=== PATIENT | male | born 1990 | race Caucasian/White ===

== ENCOUNTER 2016-10-24 14:42 | Inpatient (IN) | payer OTHER, MEDICAID ==
[~2016-10-24] VITALS: Ht 175.3 cm; Wt 45.7 kg
[2016-10-24] MEDS ORDERED: SODIUM CHLORIDE FLUSH 10ML SYR IVF ONE (15:30)
[2016-10-24] MEDS ORDERED: MORPHINE SULFATE 4 MG/ML, 1ML IVPush PRN (15:30)
[2016-10-24] MEDS ORDERED: ONDANSETRON 2MG/ML, 2ML IVPush ONE (15:30)
[2016-10-24] MEDS ORDERED: SODIUM CHLORIDE 0.9% 1,000ML IVBOLUS ONE (15:30)
[2016-10-24] MEDS ORDERED: ONDANSETRON ODT 4 MG ONE (16:26)
[2016-10-24 17:50] LABS: ASPARTATE AMINO TRANSFERASE 25 U/L (15-37); BLOOD UREA NITROGEN 85 mg/dL (7-18)
[2016-10-24] MEDS ORDERED: POTASSIUM CHLORIDE 20 MEQ PACKET PO ONE (18:30)
[2016-10-24] MEDS ORDERED: ONDANSETRON 2MG/ML, 2ML ONE (19:23)
[2016-10-24] MEDS ORDERED: BISACODYL 10 MG SUPP PR PRN (19:30)
[2016-10-24] MEDS ORDERED: PROMETHAZINE 25 MG/ML, 1ML IM PRN (19:30)
[2016-10-24] MEDS: PLEASE ENTER ALLERGIES MC SCH ×4 (19:44→23:57)
[2016-10-24 20:31] LABS: HIV 1&2 ANTIBODY SCREEN Nonreactive (Nonreactive); HIV-1 p24 ANTIGEN Nonreactive (Nonreactive)
[2016-10-24 21:07] LABS: HEPATITIS C VIRUS ANTIBODY Nonreactive (Nonreactive)
[2016-10-24] MEDS: NS + 40MEQ KCL 1,000 ML IV SCH (21:32)
[2016-10-24] MEDS: HEPARIN 5,000 UNITS/ML, 1ML SQ SCH (21:36)
[2016-10-24] MEDS: morphine SULFATE 10 MG/ML, 1ML IVPush PRN ×2 (21:41→22:23)
[2016-10-24 21:48] VITALS: BP 131/82
[2016-10-25] MEDS: morphine SULFATE 10 MG/ML, 1ML IVPush PRN ×7 (01:33→21:13)
[2016-10-25 01:45] VITALS: BP 129/92
[2016-10-25] MEDS: ONDANSETRON 2MG/ML, 2ML IVPush PRN (04:45)
[2016-10-25] MEDS: HEPARIN 5,000 UNITS/ML, 1ML SQ SCH ×3 (04:51→21:13)
[2016-10-25] MEDS: NS + 40MEQ KCL 1,000 ML IV SCH ×3 (06:27→22:09)
[2016-10-25 06:50] LABS: BLOOD UREA NITROGEN 90 mg/dL (7-18)
[2016-10-25 06:54] LABS: ASPARTATE AMINO TRANSFERASE 24 U/L (15-37)
[2016-10-25 07:02] VITALS: BP 148/95
[2016-10-25] MEDS: PLEASE ENTER ALLERGIES MC SCH ×2 (08:00)
[2016-10-25] MEDS ORDERED: PHARMACY MAY ADJ FOR RENAL FX MC PRN (10:00)
[2016-10-25] MEDS: PANTOPRAZOLE 40 MG IV IVPush SCH ×2 (11:31→21:13)
[2016-10-25 12:44] VITALS: BP 147/101
[2016-10-25 19:21] VITALS: BP 148/91
[2016-10-26] MEDS: morphine SULFATE 10 MG/ML, 1ML IVPush PRN ×7 (00:25→22:49)
[2016-10-26 01:37] VITALS: BP 175/78
[2016-10-26 04:35] LABS: BLOOD UREA NITROGEN 79 mg/dL (7-18)
[2016-10-26] MEDS: HEPARIN 5,000 UNITS/ML, 1ML SQ SCH (04:43)
[2016-10-26] MEDS: NS + 40MEQ KCL 1,000 ML IV SCH ×3 (04:43→19:34)
[2016-10-26 05:11] LABS: DIFF TOTAL CELLS COUNTED 100 CELL DIFF
[2016-10-26 05:12] LABS: VERIFY COUNTS? YES
[2016-10-26] MEDS: ONDANSETRON 2MG/ML, 2ML IVPush PRN (05:21)
[2016-10-26 06:58] VITALS: BP 137/92
[2016-10-26] MEDS: PANTOPRAZOLE 40 MG IV IVPush SCH ×2 (10:32→19:37)
[2016-10-26 12:52] VITALS: BP 165/108
[2016-10-26] MEDS: PIPERACILLIN/TAZO/PMX 4.5GM 100 ML IV SCH ×2 (14:09→19:36)
[2016-10-26 20:18] VITALS: BP 142/87
[2016-10-27] MEDS: PIPERACILLIN/TAZO/PMX 4.5GM 100 ML IV SCH ×4 (00:45→18:30)
[2016-10-27 02:16] VITALS: BP 154/88
[2016-10-27] MEDS: NS + 40MEQ KCL 1,000 ML IV SCH ×2 (02:22→10:25)
[2016-10-27] MEDS: morphine SULFATE 10 MG/ML, 1ML IVPush PRN ×6 (02:22→20:45)
[2016-10-27 04:26] LABS: BLOOD UREA NITROGEN 66 mg/dL (7-18)
[2016-10-27 04:30] LABS: ASPARTATE AMINO TRANSFERASE 14 U/L (15-37); DIFF TOTAL CELLS COUNTED 100 CELL DIFF
[2016-10-27 04:32] LABS: VERIFY COUNTS? YES
[2016-10-27 06:54] VITALS: BP 151/88
[2016-10-27] MEDS: PANTOPRAZOLE 40 MG IV IVPush SCH ×2 (10:25→22:07)
[2016-10-27 13:10] VITALS: BP 126/70
[2016-10-27] MEDS ORDERED: PROPOFOL 10 MG/ML, 20ML ONE (14:18)
[2016-10-27] MEDS ORDERED: SUCCINYLCHOLINE 20 MG/ML, 10ML ONE (14:18)
[2016-10-27] MEDS ORDERED: FENTANYL PF 100 MCG/2ML IV PRN (15:00)
[2016-10-27] MEDS ORDERED: MIDAZOLAM 1 MG/ML, 2ML IV PRN (15:00)
[2016-10-27] MEDS ORDERED: ONDANSETRON 2MG/ML, 2ML IVPush PRN (15:00)
[2016-10-27] MEDS ORDERED: HYDROmorphone 1 MG/ML, 1ML IV PRN (15:00)
[2016-10-27] MEDS: D5%-0.45% NACL 1,000 ML IV SCH (16:00)
[2016-10-27 20:24] VITALS: BP 128/83
[2016-10-28] MEDS: morphine SULFATE 10 MG/ML, 1ML IVPush PRN ×6 (00:22→19:56)
[2016-10-28] MEDS: PIPERACILLIN/TAZO/PMX 4.5GM 100 ML IV SCH ×2 (00:56→06:06)
[2016-10-28 02:25] VITALS: BP 125/69
[2016-10-28] MEDS: D5%-0.45% NACL 1,000 ML IV SCH ×3 (03:33→16:20)
[2016-10-28 03:45] LABS: ASPARTATE AMINO TRANSFERASE 12 U/L (15-37); BLOOD UREA NITROGEN 56 mg/dL (7-18)
[2016-10-28 08:25] VITALS: BP 129/72
[2016-10-28] MEDS: PANTOPRAZOLE 40 MG IV IVPush SCH ×2 (09:44→22:14)
[2016-10-28] MEDS ORDERED: PHARMACY MAY ADJ FOR RENAL FX MC PRN (12:30)
[2016-10-28 12:59] VITALS: BP 132/77
[2016-10-28] MEDS ORDERED: PIPERACILLIN/TAZO 3.375 GM in SODIUM CHLORIDE 0.9% 50 ML IV SCH (13:00)
[2016-10-28] MEDS: PIPERACILLIN/TAZO 3.375 GM in SODIUM CHLORIDE 0.9% 50 ML IV SCH ×2 (16:38→22:14)
[2016-10-28 16:45] LABS: BLOOD UREA NITROGEN 44 mg/dL (7-18)
[2016-10-28 18:54] VITALS: BP 129/78
[2016-10-29] MEDS: morphine SULFATE 10 MG/ML, 1ML IVPush PRN ×6 (00:57→21:40)
[2016-10-29] MEDS: D5%-0.45% NACL 1,000 ML IV SCH ×4 (00:58→21:41)
[2016-10-29 02:00] VITALS: BP 132/78
[2016-10-29] MEDS: PIPERACILLIN/TAZO 3.375 GM in SODIUM CHLORIDE 0.9% 50 ML IV SCH ×3 (03:54→21:41)
[2016-10-29 04:27] LABS: BLOOD UREA NITROGEN 38 mg/dL (7-18)
[2016-10-29 08:00] VITALS: BP 136/79
[2016-10-29] MEDS ORDERED: GADOBUTROL 7.5 MMOL/7.5 ML VIAL ONE (14:00)
[2016-10-29 14:13] VITALS: BP 152/89
[2016-10-29] MEDS: PANTOPRAZOLE 40 MG IV IVPush SCH (14:18)
[2016-10-29] MEDS ORDERED: TPN PER PHARMACY MC PRN (16:30)
[2016-10-29] MEDS ORDERED: [UNRECOGNIZED DRUG - OTHER] IV SCH (17:00)
[2016-10-29] MEDS ORDERED: FAT EMULSIONS IV SCH (17:00)
[2016-10-29] MEDS ORDERED: AMINO ACID 10% IV SCH (17:00)
[2016-10-29] MEDS ORDERED: DEXTROSE 70% IV SCH (17:00)
[2016-10-29] MEDS ORDERED: DEXTROSE 10% 500 ML IV PRN (17:00)
[2016-10-29] MEDS ORDERED: DEXTROSE 50%, 50ML SYRINGE IVPush PRN (17:00)
[2016-10-29] MEDS: FILTER 1.2 MICRON IV SCH (18:09)
[2016-10-29 19:00] VITALS: BP 152/86
[2016-10-30 00:27] VITALS: BP 131/77
[2016-10-30] MEDS: morphine SULFATE 10 MG/ML, 1ML IVPush PRN ×5 (00:46→20:14)
[2016-10-30] MEDS: PANTOPRAZOLE 40 MG IV IVPush SCH ×2 (03:36→14:33)
[2016-10-30] MEDS: PIPERACILLIN/TAZO 3.375 GM in SODIUM CHLORIDE 0.9% 50 ML IV SCH ×2 (03:36→08:33)
[2016-10-30] MEDS: INSULIN REGULAR LOW DOSE Q6H X 48HRS SQ-INSULIN SCH ×4 (03:37→20:30)
[2016-10-30 04:14] LABS: ASPARTATE AMINO TRANSFERASE 12 U/L (15-37); BLOOD UREA NITROGEN 30 mg/dL (7-18)
[2016-10-30 07:10] VITALS: BP 137/84
[2016-10-30] MEDS: D5%-0.45% NACL 1,000 ML IV SCH (08:00)
[2016-10-30 12:37] VITALS: BP 135/91
[2016-10-30] MEDS ORDERED: PIPERACILLIN/TAZO/PMX 4.5GM 100 ML IV SCH (13:00)
[2016-10-30] MEDS: PIPERACILLIN/TAZO/PMX 4.5GM 100 ML IV SCH ×2 (13:20→20:12)
[2016-10-30] MEDS ORDERED: FAT EMULSIONS IV SCH ×2 (17:00)
[2016-10-30] MEDS ORDERED: AMINO ACID 10% IV SCH ×2 (17:00)
[2016-10-30] MEDS: FILTER 1.2 MICRON IV SCH (17:00)
[2016-10-30] MEDS ORDERED: [UNRECOGNIZED DRUG - OTHER] IV SCH (17:00)
[2016-10-30] MEDS ORDERED: [UNRECOGNIZED DRUG - OTHER] IV SCH (17:00)
[2016-10-30] MEDS ORDERED: DEXTROSE 70% IV SCH ×2 (17:00)
[2016-10-30] MEDS ORDERED: D5%-0.45% NACL 1,000 ML IV SCH (17:00)
[2016-10-30] MEDS ORDERED: SODIUM CHLORIDE 0.9% 1,000 ML IV SCH ×2 (20:00)
[2016-10-30] MEDS: SODIUM CHLORIDE 0.9% 1,000 ML IV SCH (20:13)
[2016-10-30 20:52] VITALS: BP 156/80
[2016-10-31] MEDS: INSULIN REGULAR LOW DOSE Q6H X 48HRS SQ-INSULIN SCH ×4 (01:46→20:24)
[2016-10-31] MEDS: PANTOPRAZOLE 40 MG IV IVPush SCH ×2 (01:47→14:25)
[2016-10-31] MEDS: morphine SULFATE 10 MG/ML, 1ML IVPush PRN ×5 (01:47→20:39)
[2016-10-31] MEDS: PIPERACILLIN/TAZO/PMX 4.5GM 100 ML IV SCH ×4 (01:47→20:39)
[2016-10-31 02:50] VITALS: BP 134/81
[2016-10-31 06:47] LABS: ASPARTATE AMINO TRANSFERASE 18 U/L (15-37); BLOOD UREA NITROGEN 23 mg/dL (7-18)
[2016-10-31 07:45] VITALS: BP 145/95
[2016-10-31] MEDS: SODIUM CHLORIDE 0.9% 1,000 ML IV SCH (10:48)
[2016-10-31 12:35] VITALS: BP 152/97
[2016-10-31] MEDS ORDERED: AMINO ACID 10% IV SCH ×2 (17:00)
[2016-10-31] MEDS ORDERED: [UNRECOGNIZED DRUG - OTHER] IV SCH (17:00)
[2016-10-31] MEDS ORDERED: DEXTROSE 70% IV SCH ×2 (17:00)
[2016-10-31] MEDS ORDERED: [UNRECOGNIZED DRUG - OTHER] IV SCH (17:00)
[2016-10-31] MEDS ORDERED: FAT EMULSIONS IV SCH ×2 (17:00)
[2016-10-31] MEDS: FILTER 1.2 MICRON IV SCH (17:39)
[2016-10-31 19:02] VITALS: BP 165/89
[2016-11-01] MEDS: SODIUM CHLORIDE 0.9% 1,000 ML IV SCH ×2 (00:25→15:39)
[2016-11-01 00:37] VITALS: BP 147/79
[2016-11-01] MEDS: morphine SULFATE 10 MG/ML, 1ML IVPush PRN ×8 (00:41→23:35)
[2016-11-01] MEDS: PIPERACILLIN/TAZO/PMX 4.5GM 100 ML IV SCH ×4 (02:56→20:37)
[2016-11-01] MEDS: PANTOPRAZOLE 40 MG IV IVPush SCH ×2 (02:56→14:11)
[2016-11-01 03:57] LABS: ASPARTATE AMINO TRANSFERASE 25 U/L (15-37); BLOOD UREA NITROGEN 23 mg/dL (7-18)
[2016-11-01] MEDS: INSULIN REGULAR LOW DOSE QDAY SQ-INSULIN SCH (06:00)
[2016-11-01 07:07] VITALS: BP 151/87
[2016-11-01 13:17] VITALS: BP 136/76
[2016-11-01] MEDS ORDERED: FAT EMULSIONS IV SCH (17:00)
[2016-11-01] MEDS ORDERED: DEXTROSE 70% IV SCH (17:00)
[2016-11-01] MEDS ORDERED: [UNRECOGNIZED DRUG - OTHER] IV SCH (17:00)
[2016-11-01] MEDS ORDERED: AMINO ACID 10% IV SCH (17:00)
[2016-11-01] MEDS: FILTER 1.2 MICRON IV SCH (17:17)
[2016-11-01 19:25] VITALS: BP 145/74
[2016-11-02 01:49] VITALS: BP 144/80
[2016-11-02] MEDS: morphine SULFATE 10 MG/ML, 1ML IVPush PRN ×8 (03:04→23:57)
[2016-11-02] MEDS: PANTOPRAZOLE 40 MG IV IVPush SCH ×2 (03:13→15:28)
[2016-11-02] MEDS: PIPERACILLIN/TAZO/PMX 4.5GM 100 ML IV SCH ×4 (03:13→20:25)
[2016-11-02] MEDS: INSULIN REGULAR LOW DOSE QDAY SQ-INSULIN SCH (05:42)
[2016-11-02 06:46] LABS: BLOOD UREA NITROGEN 22 mg/dL (7-18)
[2016-11-02 06:51] LABS: ASPARTATE AMINO TRANSFERASE 32 U/L (15-37)
[2016-11-02 08:52] VITALS: BP 121/75
[2016-11-02] MEDS: SODIUM CHLORIDE 0.9% 1,000 ML IV SCH ×2 (09:55→20:25)
[2016-11-02 15:34] VITALS: BP 142/81
[2016-11-02] MEDS ORDERED: FAT EMULSIONS IV SCH ×2 (17:00)
[2016-11-02] MEDS ORDERED: [UNRECOGNIZED DRUG - OTHER] IV SCH (17:00)
[2016-11-02] MEDS ORDERED: DEXTROSE 70% IV SCH ×2 (17:00)
[2016-11-02] MEDS ORDERED: FILTER 1.2 MICRON IV SCH (17:00)
[2016-11-02] MEDS ORDERED: AMINO ACID 10% IV SCH ×2 (17:00)
[2016-11-02] MEDS ORDERED: [UNRECOGNIZED DRUG - OTHER] IV SCH (17:00)
[2016-11-02 20:12] VITALS: BP 119/67
[2016-11-03 02:00] VITALS: BP 111/67
[2016-11-03] MEDS: morphine SULFATE 10 MG/ML, 1ML IVPush PRN ×7 (03:14→22:26)
[2016-11-03] MEDS: PANTOPRAZOLE 40 MG IV IVPush SCH ×2 (03:14→15:43)
[2016-11-03] MEDS: PIPERACILLIN/TAZO/PMX 4.5GM 100 ML IV SCH ×4 (03:14→20:48)
[2016-11-03] MEDS: INSULIN REGULAR LOW DOSE QDAY SQ-INSULIN SCH (06:00)
[2016-11-03 06:12] LABS: ASPARTATE AMINO TRANSFERASE 25 U/L (15-37); BLOOD UREA NITROGEN 24 mg/dL (7-18)
[2016-11-03 07:47] VITALS: BP 116/66
[2016-11-03] MEDS: SODIUM CHLORIDE 0.9% 1,000 ML IV SCH (10:30)
[2016-11-03 13:01] VITALS: BP 115/74
[2016-11-03] MEDS: BENZOCAINE AEROSOL SPRAY 20%, 60ML TP PRN ×3 (15:44→22:26)
[2016-11-03] MEDS ORDERED: DEXTROSE 70% IV SCH (17:00)
[2016-11-03] MEDS ORDERED: FILTER 1.2 MICRON IV SCH (17:00)
[2016-11-03] MEDS ORDERED: AMINO ACID 10% IV SCH (17:00)
[2016-11-03] MEDS ORDERED: [UNRECOGNIZED DRUG - OTHER] IV SCH (17:00)
[2016-11-03] MEDS ORDERED: FAT EMULSIONS IV SCH (17:00)
[2016-11-03 18:48] VITALS: BP 128/74
[2016-11-04 01:08] VITALS: BP 122/74
[2016-11-04] MEDS: morphine SULFATE 10 MG/ML, 1ML IVPush PRN ×4 (01:31→12:32)
[2016-11-04] MEDS: SODIUM CHLORIDE 0.9% 1,000 ML IV SCH (01:34)
[2016-11-04] MEDS: PANTOPRAZOLE 40 MG IV IVPush SCH ×2 (02:36→14:27)
[2016-11-04] MEDS: PIPERACILLIN/TAZO/PMX 4.5GM 100 ML IV SCH ×4 (02:36→21:09)
[2016-11-04 04:04] LABS: POTASSIUM,URINE RANDOM 50 mmol/L
[2016-11-04] MEDS: BENZOCAINE AEROSOL SPRAY 20%, 60ML TP PRN ×2 (04:42→15:58)
[2016-11-04] MEDS: INSULIN REGULAR LOW DOSE QDAY SQ-INSULIN SCH (05:00)
[2016-11-04 05:42] LABS: ASPARTATE AMINO TRANSFERASE 28 U/L (15-37); BLOOD UREA NITROGEN 26 mg/dL (7-18)
[2016-11-04 06:54] VITALS: BP 122/72
[2016-11-04] MEDS ORDERED: LACTATED RINGERS 1,000 ML IV SCH (12:00)
[2016-11-04] MEDS ORDERED: TPN PER PHARMACY MC PRN (13:00)
[2016-11-04] MEDS ORDERED: morphine SULFATE 10 MG/ML, 1ML IVPush PRN (13:30)
[2016-11-04 14:30] VITALS: BP 114/71
[2016-11-04] MEDS ORDERED: SODIUM CHLORIDE 0.9% 1,000 ML IV SCH (14:30)
[2016-11-04] MEDS: MORPHINE SULFATE 4 MG/ML, 1ML IVPush PRN ×3 (15:55→23:14)
[2016-11-04] MEDS ORDERED: [UNRECOGNIZED DRUG - OTHER] IV SCH ×3 (17:00)
[2016-11-04] MEDS ORDERED: FAT EMULSIONS IV SCH ×3 (17:00)
[2016-11-04] MEDS ORDERED: DEXTROSE 70% IV SCH ×3 (17:00)
[2016-11-04] MEDS ORDERED: AMINO ACID 10% IV SCH ×3 (17:00)
[2016-11-04] MEDS: FILTER 1.2 MICRON IV SCH (17:33)
[2016-11-04 19:23] VITALS: BP 118/69
[2016-11-05] MEDS: LACTATED RINGERS 1,000 ML IV SCH (02:19)
[2016-11-05] MEDS: MORPHINE SULFATE 4 MG/ML, 1ML IVPush PRN ×5 (02:19→21:33)
[2016-11-05] MEDS: PANTOPRAZOLE 40 MG IV IVPush SCH ×2 (02:19→14:43)
[2016-11-05 02:36] VITALS: BP 116/68
[2016-11-05] MEDS: PIPERACILLIN/TAZO/PMX 4.5GM 100 ML IV SCH ×4 (03:24→20:40)
[2016-11-05 04:56] LABS: BLOOD UREA NITROGEN 26 mg/dL (7-18)
[2016-11-05] MEDS: INSULIN REGULAR LOW DOSE QDAY SQ-INSULIN SCH (05:37)
[2016-11-05] MEDS ORDERED: MIDAZOLAM 1 MG/ML, 2ML ONE (07:27)
[2016-11-05] MEDS ORDERED: DEXAMETHASONE 4 MG/ML, 1ML ONE (07:32)
[2016-11-05] MEDS ORDERED: ONDANSETRON 2MG/ML, 2ML ONE ×2 (07:32→09:02)
[2016-11-05] MEDS ORDERED: PROPOFOL 10 MG/ML, 20ML ONE (07:32)
[2016-11-05] MEDS ORDERED: PROMETHAZINE 25 MG/ML, 1ML IV PRN (09:00)
[2016-11-05] MEDS ORDERED: ACETAMINOPHEN 325 MG TABLET PO PRN (09:00)
[2016-11-05] MEDS ORDERED: MIDAZOLAM 1 MG/ML, 2ML IV PRN (09:00)
[2016-11-05] MEDS ORDERED: ALBUTEROL SULFATE 2.5 MG/3 ML NPPB PRN (09:00)
[2016-11-05] MEDS ORDERED: METOPROLOL 1 MG/ML, 5ML IV PRN (09:00)
[2016-11-05] MEDS ORDERED: FENTANYL PF 100 MCG/2ML IV PRN (09:00)
[2016-11-05] MEDS ORDERED: OXYcodone 5 MG/5 ML ORAL.SOL UDC PO PRN (09:00)
[2016-11-05] MEDS ORDERED: LABETALOL 5MG/ML, 20ML IV PRN (09:00)
[2016-11-05] MEDS: HYDROmorphone 1 MG/ML, 1ML IV PRN ×2 (09:00→09:20)
[2016-11-05] MEDS ORDERED: ONDANSETRON 2MG/ML, 2ML IVPush PRN (09:00)
[2016-11-05] MEDS ORDERED: EPHEDRINE 50 MG/ML, 1ML IVPush PRN (09:00)
[2016-11-05] MEDS ORDERED: hydrALAzine 20 MG/ML, 1ML IV PRN (09:00)
[2016-11-05] MEDS ORDERED: HYDROmorphone 1 MG/ML, 1ML ONE (09:01)
[2016-11-05 11:12] VITALS: BP 124/77
[2016-11-05 13:45] VITALS: BP 134/74
[2016-11-05] MEDS ORDERED: FAT EMULSIONS IV SCH (17:00)
[2016-11-05] MEDS ORDERED: DEXTROSE 70% IV SCH (17:00)
[2016-11-05] MEDS ORDERED: AMINO ACID 10% IV SCH (17:00)
[2016-11-05] MEDS ORDERED: [UNRECOGNIZED DRUG - OTHER] IV SCH (17:00)
[2016-11-05] MEDS: FILTER 1.2 MICRON IV SCH (17:14)
[2016-11-05] MEDS: METOCLOPRAMIDE 5 MG/ML, 2ML IVPush SCH (18:00)
[2016-11-05 19:43] VITALS: BP 132/78
[2016-11-06] MEDS: MORPHINE SULFATE 4 MG/ML, 1ML IVPush PRN ×7 (00:37→21:50)
[2016-11-06] MEDS: BENZOCAINE AEROSOL SPRAY 20%, 60ML TP PRN ×6 (00:38→21:10)
[2016-11-06] MEDS: LACTATED RINGERS 1,000 ML IV SCH ×2 (00:38→18:00)
[2016-11-06 02:50] VITALS: BP 122/74
[2016-11-06] MEDS: PANTOPRAZOLE 40 MG IV IVPush SCH ×2 (02:54→14:25)
[2016-11-06] MEDS: METOCLOPRAMIDE 5 MG/ML, 2ML IVPush SCH ×4 (02:54→20:00)
[2016-11-06] MEDS: PIPERACILLIN/TAZO/PMX 4.5GM 100 ML IV SCH ×3 (03:00→21:00)
[2016-11-06] MEDS: INSULIN REGULAR LOW DOSE QDAY SQ-INSULIN SCH (06:00)
[2016-11-06 06:31] LABS: ASPARTATE AMINO TRANSFERASE 32 U/L (15-37); BLOOD UREA NITROGEN 25 mg/dL (7-18)
[2016-11-06] MEDS: FAT EMULSIONS IV SCH (17:30)
[2016-11-06] MEDS: FILTER 1.2 MICRON IV SCH (17:30)
[2016-11-06] MEDS: [UNRECOGNIZED DRUG - OTHER] IV SCH (17:30)
[2016-11-06] MEDS: AMINO ACID 10% IV SCH (17:30)
[2016-11-06] MEDS: DEXTROSE 70% IV SCH (17:30)
[2016-11-07] MEDS: BENZOCAINE AEROSOL SPRAY 20%, 60ML TP PRN ×5 (01:00→15:31)
[2016-11-07] MEDS: MORPHINE SULFATE 4 MG/ML, 1ML IVPush PRN ×6 (01:00→22:14)
[2016-11-07] MEDS: PANTOPRAZOLE 40 MG IV IVPush SCH ×2 (02:00→14:38)
[2016-11-07] MEDS: METOCLOPRAMIDE 5 MG/ML, 2ML IVPush SCH ×4 (03:00→22:15)
[2016-11-07] MEDS: LACTATED RINGERS 1,000 ML IV SCH ×2 (04:00→22:15)
[2016-11-07] MEDS: INSULIN REGULAR LOW DOSE QDAY SQ-INSULIN SCH (06:00)
[2016-11-07 08:20] VITALS: BP 130/75
[2016-11-07] MEDS: PIPERACILLIN/TAZO/PMX 4.5GM 100 ML IV SCH ×4 (09:00→22:25)
[2016-11-07 14:55] VITALS: BP 144/81
[2016-11-07] MEDS: DEXTROSE 70% IV SCH (18:51)
[2016-11-07] MEDS: AMINO ACID 10% IV SCH (18:51)
[2016-11-07] MEDS: FAT EMULSIONS IV SCH (18:51)
[2016-11-07] MEDS: [UNRECOGNIZED DRUG - OTHER] IV SCH (18:51)
[2016-11-07] MEDS: FILTER 1.2 MICRON IV SCH (18:52)
[2016-11-07 20:31] VITALS: BP 121/81
[2016-11-08] MEDS: MORPHINE SULFATE 4 MG/ML, 1ML IVPush PRN ×6 (02:35→22:06)
[2016-11-08] MEDS: PANTOPRAZOLE 40 MG IV IVPush SCH ×2 (02:35→14:28)
[2016-11-08] MEDS: PIPERACILLIN/TAZO/PMX 4.5GM 100 ML IV SCH ×4 (02:35→21:01)
[2016-11-08] MEDS: METOCLOPRAMIDE 5 MG/ML, 2ML IVPush SCH ×4 (02:35→21:02)
[2016-11-08 02:45] VITALS: BP 108/12
[2016-11-08 03:47] LABS: BLOOD UREA NITROGEN 25 mg/dL (7-18)
[2016-11-08] MEDS: INSULIN REGULAR LOW DOSE QDAY SQ-INSULIN SCH (05:07)
[2016-11-08 09:19] VITALS: BP 122/74
[2016-11-08] MEDS: BENZOCAINE AEROSOL SPRAY 20%, 60ML TP PRN ×2 (09:54→14:29)
[2016-11-08] MEDS ORDERED: OMNIPAQUE 350 MG/ML, 150 ML BOTTLE ONE (11:53)
[2016-11-08] MEDS: LACTATED RINGERS 1,000 ML IV SCH (11:55)
[2016-11-08 13:48] VITALS: BP 123/76
[2016-11-08] MEDS ORDERED: FAT EMULSIONS IV SCH (17:00)
[2016-11-08] MEDS ORDERED: DEXTROSE 70% IV SCH (17:00)
[2016-11-08] MEDS ORDERED: FILTER 1.2 MICRON IV SCH (17:00)
[2016-11-08] MEDS ORDERED: [UNRECOGNIZED DRUG - OTHER] IV SCH (17:00)
[2016-11-08] MEDS ORDERED: AMINO ACID 10% IV SCH (17:00)
[2016-11-08] MEDS: HEPARIN 5,000 UNITS/ML, 1ML SQ SCH (17:26)
[2016-11-08] MEDS: LORazepam 2 MG/ML, 1ML IVPush PRN ×2 (17:55→22:06)
[2016-11-08 19:51] VITALS: BP 125/75
[2016-11-09 01:35] VITALS: BP 129/71
[2016-11-09] MEDS: PANTOPRAZOLE 40 MG IV IVPush SCH ×2 (01:47→13:39)
[2016-11-09] MEDS: METOCLOPRAMIDE 5 MG/ML, 2ML IVPush SCH ×4 (01:48→20:39)
[2016-11-09] MEDS: LACTATED RINGERS 1,000 ML IV SCH ×2 (03:07→22:41)
[2016-11-09] MEDS: PIPERACILLIN/TAZO/PMX 4.5GM 100 ML IV SCH ×4 (03:08→20:39)
[2016-11-09] MEDS: HEPARIN 5,000 UNITS/ML, 1ML SQ SCH ×2 (04:29→16:31)
[2016-11-09] MEDS: MORPHINE SULFATE 4 MG/ML, 1ML IVPush PRN ×4 (04:30→21:07)
[2016-11-09] MEDS: INSULIN REGULAR LOW DOSE QDAY SQ-INSULIN SCH (05:57)
[2016-11-09] MEDS: LORazepam 2 MG/ML, 1ML IVPush PRN ×3 (05:57→22:41)
[2016-11-09 06:42] VITALS: BP 124/79
[2016-11-09 09:15] LABS: BLOOD UREA NITROGEN 32 mg/dL (7-18)
[2016-11-09 11:50] LABS: BLOOD UREA NITROGEN 24 mg/dL (7-18)
[2016-11-09 14:38] VITALS: BP 121/77
[2016-11-09] MEDS ORDERED: FILTER 1.2 MICRON IV SCH (17:00)
[2016-11-09] MEDS ORDERED: AMINO ACID 10% IV SCH (17:00)
[2016-11-09] MEDS ORDERED: DEXTROSE 70% IV SCH (17:00)
[2016-11-09] MEDS ORDERED: FAT EMULSIONS IV SCH (17:00)
[2016-11-09] MEDS ORDERED: [UNRECOGNIZED DRUG - OTHER] IV SCH (17:00)
[2016-11-09 20:55] VITALS: BP 116/73
[2016-11-10 01:41] VITALS: BP 125/76
[2016-11-10] MEDS: METOCLOPRAMIDE 5 MG/ML, 2ML IVPush SCH ×4 (02:09→19:22)
[2016-11-10] MEDS: PANTOPRAZOLE 40 MG IV IVPush SCH ×2 (02:09→13:45)
[2016-11-10] MEDS: MORPHINE SULFATE 4 MG/ML, 1ML IVPush PRN ×4 (02:10→18:45)
[2016-11-10] MEDS: HEPARIN 5,000 UNITS/ML, 1ML SQ SCH ×2 (03:51→15:50)
[2016-11-10 07:18] VITALS: BP 111/66
[2016-11-10] MEDS: LORazepam 2 MG/ML, 1ML IVPush PRN ×3 (09:39→22:23)
[2016-11-10] MEDS: LACTATED RINGERS 1,000 ML IV SCH ×2 (09:50→22:24)
[2016-11-10 13:36] VITALS: BP 125/77
[2016-11-10 21:56] VITALS: BP 114/68
[2016-11-11] MEDS: PANTOPRAZOLE 40 MG IV IVPush SCH ×2 (01:29→15:52)
[2016-11-11] MEDS: METOCLOPRAMIDE 5 MG/ML, 2ML IVPush SCH ×4 (01:29→20:10)
[2016-11-11] MEDS: MORPHINE SULFATE 4 MG/ML, 1ML IVPush PRN ×3 (01:30→15:51)
[2016-11-11 03:59] VITALS: BP 121/72
[2016-11-11] MEDS: HEPARIN 5,000 UNITS/ML, 1ML SQ SCH ×2 (04:47→16:07)
[2016-11-11] MEDS: LORazepam 2 MG/ML, 1ML IVPush PRN ×3 (04:47→18:21)
[2016-11-11 07:07] VITALS: BP 123/81
[2016-11-11] MEDS: LACTATED RINGERS 1,000 ML IV SCH (12:07)
[2016-11-11 13:55] VITALS: BP 122/77
[2016-11-11 20:03] VITALS: BP 122/74
[2016-11-11] MEDS: BENZOCAINE AEROSOL SPRAY 20%, 60ML TP PRN (20:10)
[2016-11-12] MEDS: LORazepam 2 MG/ML, 1ML IVPush PRN ×4 (00:27→23:22)
[2016-11-12] MEDS: PANTOPRAZOLE 40 MG IV IVPush SCH ×2 (01:40→15:12)
[2016-11-12] MEDS: LACTATED RINGERS 1,000 ML IV SCH ×2 (01:40→15:13)
[2016-11-12] MEDS: METOCLOPRAMIDE 5 MG/ML, 2ML IVPush SCH ×4 (01:46→21:14)
[2016-11-12 02:02] VITALS: BP 121/77
[2016-11-12] MEDS: HEPARIN 5,000 UNITS/ML, 1ML SQ SCH ×2 (05:27→17:18)
[2016-11-12 06:03] LABS: BLOOD UREA NITROGEN 28 mg/dL (7-18)
[2016-11-12 07:20] VITALS: BP 135/83
[2016-11-12 13:40] VITALS: BP 122/73
[2016-11-12 19:22] VITALS: BP 146/89
[2016-11-13] MEDS: PANTOPRAZOLE 40 MG IV IVPush SCH ×2 (03:02→19:51)
[2016-11-13] MEDS: HEPARIN 5,000 UNITS/ML, 1ML SQ SCH ×2 (03:02→16:25)
[2016-11-13] MEDS: METOCLOPRAMIDE 5 MG/ML, 2ML IVPush SCH ×4 (03:02→19:52)
[2016-11-13 03:25] VITALS: BP 124/83
[2016-11-13] MEDS: LACTATED RINGERS 1,000 ML IV SCH (04:54)
[2016-11-13 07:10] VITALS: BP 111/64
[2016-11-13] MEDS: LORazepam 2 MG/ML, 1ML IVPush PRN ×2 (07:58→16:23)
[2016-11-13 13:35] VITALS: BP 123/81
[2016-11-13] MEDS ORDERED: PANTOPROZOLE 40MG TABLET PO SCH (17:00)
[2016-11-13 19:44] VITALS: BP 128/79
[2016-11-14] MEDS: LORazepam 2 MG/ML, 1ML IVPush PRN ×3 (00:51→17:32)
[2016-11-14 01:35] VITALS: BP 132/82
[2016-11-14] MEDS: METOCLOPRAMIDE 5 MG/ML, 2ML IVPush SCH ×4 (03:32→21:31)
[2016-11-14] MEDS: HEPARIN 5,000 UNITS/ML, 1ML SQ SCH ×2 (03:32→16:19)
[2016-11-14 04:18] LABS: ASPARTATE AMINO TRANSFERASE 33 U/L (15-37); BLOOD UREA NITROGEN 11 mg/dL (7-18)
[2016-11-14 06:54] VITALS: BP 123/80
[2016-11-14] MEDS: PANTOPRAZOLE 40 MG IV IVPush SCH (09:13)
[2016-11-14 14:03] VITALS: BP 124/79
[2016-11-14] MEDS: PANTOPROZOLE 40MG TABLET PO SCH (17:32)
[2016-11-14 19:40] VITALS: BP 117/75
[2016-11-15] MEDS: LORazepam 2 MG/ML, 1ML IVPush PRN ×3 (01:26→21:03)
[2016-11-15 02:15] VITALS: BP 102/62
[2016-11-15] MEDS: METOCLOPRAMIDE 5 MG/ML, 2ML IVPush SCH ×4 (04:55→21:03)
[2016-11-15] MEDS: HEPARIN 5,000 UNITS/ML, 1ML SQ SCH ×2 (04:55→17:28)
[2016-11-15 08:22] VITALS: BP 107/69
[2016-11-15] MEDS: PANTOPROZOLE 40MG TABLET PO SCH ×2 (08:23→17:28)
[2016-11-15 12:55] VITALS: BP 111/68
[2016-11-15 18:27] VITALS: BP 122/74
[2016-11-16 01:29] VITALS: BP 128/69
[2016-11-16] MEDS: METOCLOPRAMIDE 5 MG/ML, 2ML IVPush SCH ×3 (03:25→15:30)
[2016-11-16] MEDS: LORazepam 2 MG/ML, 1ML IVPush PRN ×2 (05:44→13:52)
[2016-11-16] MEDS: HEPARIN 5,000 UNITS/ML, 1ML SQ SCH ×2 (05:44→16:50)
[2016-11-16 06:26] LABS: BLOOD UREA NITROGEN 19 mg/dL (7-18)
[2016-11-16 08:51] VITALS: BP 128/84
[2016-11-16] MEDS: PANTOPROZOLE 40MG TABLET PO SCH ×2 (08:53→16:49)
[2016-11-16 13:00] VITALS: BP 118/66
[2016-11-16] MEDS ORDERED: OMEP40CA6 PO (14:13)
[2016-11-16] MEDS ORDERED: LEVO250T8 PO (14:13)
[2016-11-16] MEDS ORDERED: NITA500T2 PO (14:13)
[2016-11-16] MEDS ORDERED: DOXY100C2 PO (14:13)
== END 2016-11-16 17:12 | DRG 380 ==
LOC: ED 19:22 → EDIP 19:27 → 4WST 20:45
PROC: 02HV33Z Insertion of Infusion Device into Superior Vena Cava, Percutaneous Approach (ICD-10-PCS; 2016-10-25)
PROC: B5181ZA Fluoroscopy of Superior Vena Cava using Low Osmolar Contrast, Guidance (ICD-10-PCS; 2016-10-25)
PROC: B548ZZA Ultrasonography of Superior Vena Cava, Guidance (ICD-10-PCS; 2016-10-25)
PROC: 3E0436Z Introduction of Nutritional Substance into Central Vein, Percutaneous Approach (ICD-10-PCS; 2016-10-25)
PROC: 0D9670Z Drainage of Stomach with Drainage Device, Via Natural or Artificial Opening (ICD-10-PCS; 2016-10-25)
PROC: 0DJ08ZZ Inspection of Upper Intestinal Tract, Via Natural or Artificial Opening Endoscopic (ICD-10-PCS; principal; 2016-10-27 14:00)
PROC: 0DB68ZX Excision of Stomach, Via Natural or Artificial Opening Endoscopic, Diagnostic (ICD-10-PCS; 2016-11-05)
PROC: 0DH68UZ Insertion of Feeding Device into Stomach, Via Natural or Artificial Opening Endoscopic (ICD-10-PCS; 2016-11-05)
DX: K31.5 Obstruction of duodenum (principal); N17.0 Acute kidney failure with tubular necrosis; K85.90 Acute pancreatitis without necrosis or infection, unspecified; E43 Unspecified severe protein-calorie malnutrition; J69.0 Pneumonitis due to inhalation of food and vomit; K22.10 Ulcer of esophagus without bleeding; E87.1 Hypo-osmolality and hyponatremia; E87.4 Mixed disorder of acid-base balance; R17 Unspecified jaundice; E87.0 Hyperosmolality and hypernatremia; F11.20 Opioid dependence, uncomplicated; K55.1 Chronic vascular disorders of intestine; K31.1 Adult hypertrophic pyloric stenosis; E83.52 Hypercalcemia; E86.0 Dehydration; F17.210 Nicotine dependence, cigarettes, uncomplicated; Z83.3 Family history of diabetes mellitus; K59.03 Drug induced constipation; T40.605A Adverse effect of unspecified narcotics, initial encounter; B96.81 Helicobacter pylori [H. pylori] as the cause of diseases classified elsewhere; D63.8 Anemia in other chronic diseases classified elsewhere; D72.828 Other elevated white blood cell count; E83.39 Other disorders of phosphorus metabolism; E87.6 Hypokalemia; K25.9 Gastric ulcer, unspecified as acute or chronic, without hemorrhage or perforation; K29.70 Gastritis, unspecified, without bleeding; R74.8 Abnormal levels of other serum enzymes; Z90.89 Acquired absence of other organs; Z71.6 Tobacco abuse counseling
CPT/HCPCS: 36415; 36569; 71020; 74000; 74176; 74183; 74241; 76000; 76770; 76937; 77001; 80048; 80053; 80061; 80074; 81001; 82040; 82150; 82330; 82436; 82570; 82941; 82962; 83605; 83690; 83735; 84100; 84133; 84134; 84156; 84300; 84478; 84550; 85025; 86703; 87040; 87070; 87205; 87324; 87899; 88305; 88342; 96361; 96374; A9585; J1100; J1170; J1644; J2250; J2405; J2543; J2704; J3010; J3475; Q9967; C1751; C9113; G0435; G0461; J0330; J0610; J2060; J2270; J2765; J3420; J3480; J7030; J7120